=== PATIENT | male | born 1975 | race Caucasian/White ===

== ENCOUNTER 2024-02-16 23:56 | Emergency (ER) | payer SELFPAY ==
[~2024-02-16] VITALS: Ht 180.3 cm; Wt 70.5 kg
[2024-02-17 00:03] VITALS: BP 132/82; TEMP 97.5; O2SAT 100
== END 2024-02-17 01:01 | disposition left against medical advice (07) ==
LOC: M ED 23:56
DX: Z53.21 Procedure and treatment not carried out due to patient leaving prior to being seen by health care provider (principal)